=== PATIENT | female | born 1965 | race Two or more races ===

== ENCOUNTER → 2017-04-27 | Outpatient (REF) | payer BC ==
[2017-04-27 20:50] LABS: LUTEINIZING HORMONE 2.8 mIU/mL
[2017-04-27 20:51] LABS: FOLLICLE STIMULATING HORMONE 10.6 mIU/mL
== END ==
LOC: M LAB REF 17:02
PROVIDERS: ATTEND Nurse Practitioner Family
DX: N95.8 Other specified menopausal and perimenopausal disorders (principal)

== ENCOUNTER → 2018-12-03 | Outpatient (REF) | payer BC, MEDICAID ==
[2018-12-03 13:32] LABS: BASO # 0.1 10^3/uL (0.0-0.2); BASO % 0.8 % (0.0-1.0); EOS # 0.1 10^3/uL (0.0-0.50); EOS % 2.3 % (0.0-3.0); HEMATOCRIT 41.6 % (36.0-47.0); HEMOGLOBIN 13.9 g/dl (12.0-15.5); LYMPH # 1.9 10^3/uL (1.5-4.5); MEAN CORPUSCULAR HEMOGLOBIN 31.2 pg (27.0-33.0); MEAN CORPUSCULAR HGB CONC 33.4 g/dl (32.0-36.5); MEAN CORPUSCULAR VOLUME 93.5 fl (80.0-96.0); MONO # 0.4 10^3/uL (0.0-0.8); MONO % 6.7 % (0.0-5.0); NEUTROPHILS # 3.6 10^3/uL (1.8-7.7); NEUTROPHILS % 58.9 % (36.0-66.0); PLATELET COUNT, AUTOMATED 209 10^3/uL (150-450); RED BLOOD COUNT 4.45 10^6/uL (4.00-5.40); WHITE BLOOD COUNT 6.1 10^3/uL (4.0-10.0)
[2018-12-03 13:44] LABS: BLOOD UREA NITROGEN 15 MG/DL (7-18); CALCIUM LEVEL 9.3 MG/DL (8.5-10.1); CARBON DIOXIDE LEVEL 25 MEQ/L (21-32); CHLORIDE LEVEL 106 MEQ/L (98-107); CHOLESTEROL LEVEL 285 MG/DL (<200); CREATININE FOR GFR 0.77 MG/DL (0.55-1.30); GLOMERULAR FILTRATION RATE > 60.0 (>51); GLUCOSE, FASTING 107 MG/DL (70-100); HDL CHOLESTEROL 60 MG/DL (>40); LDL CHOLESTEROL 183 MG/DL (<100); NON-HDL-C 225 MG/DL; POTASSIUM SERUM 4.3 MEQ/L (3.5-5.1); SODIUM LEVEL 138 MEQ/L (136-145); TRIGLYCERIDES LEVEL 212 MG/DL (<150)
[2018-12-03 13:45] LABS: LUTEINIZING HORMONE 1.2 mIU/mL
[2018-12-03 13:46] LABS: FOLLICLE STIMULATING HORMONE 3.9 mIU/mL
[2018-12-03 14:11] LABS: HEMOGLOBIN A1c 6.2 %
== END ==
LOC: M LAB REF 13:06
PROVIDERS: ATTEND Internal Medicine
DX: F34.1 Dysthymic disorder (principal); E03.9 Hypothyroidism, unspecified; Z79.3 Long term (current) use of hormonal contraceptives; R73.09 Other abnormal glucose; E78.00 Pure hypercholesterolemia, unspecified; N95.8 Other specified menopausal and perimenopausal disorders

== ENCOUNTER → 2021-01-24 | Outpatient (CLI) | payer OTHER ==
--- NOTE | 2021-01-24 09:49 | REP ---
INDICATION: PAIN COMPARISON: None. TECHNIQUE: AP, lateral, bilateral oblique and sunrise views. FINDINGS: Very subtle early spurring along the medial and lateral tibiofemoral compartments noted with minimal medial joint space narrowing. Lateral and sunrise views demonstrate increased sclerosis along the posterior patellar margin with mild patellofemoral joint space narrowing and marginal patellar spurring. Small suprapatellar effusion cannot be excluded. No evidence for acute fracture or dislocation. IMPRESSION: Mild/early-moderate arthritic changes <Electronically signed by Oliverio Virk > 01/24/21 0926
== END ==
LOC: M WUC 09:31
PROVIDERS: ATTEND Physician Assistant
DX: M17.12 Unilateral primary osteoarthritis, left knee (principal)

== ENCOUNTER → 2021-01-30 | Outpatient (CLI) | payer OTHER ==
--- NOTE | 2021-01-30 15:19 | REP ---
INDICATION: PAIN IN LT KNEE. COMPARISON: Radiographs 01/24/2021. TECHNIQUE: Real-time sonographic evaluation of posterior left knee soft tissues performed. FINDINGS: Popliteal artery and vein are patent. There is no thrombus in the popliteal vein. No cystic or solid mass is seen. No fluid collection is seen. IMPRESSION: Negative ultrasound left popliteal fossa. <Electronically signed by Benjamin Garces > 01/30/21 0811
== END ==
LOC: M RAD 14:24
PROVIDERS: ATTEND Physician Assistant
DX: M25.562 Pain in left knee (principal)

== ENCOUNTER → 2025-01-24 | Outpatient (CLI) | payer OTHER | LOC: M WUC 13:58 | PROVIDERS: ATTEND Physician Assistant Medical | DX: M25.552 Pain in left hip (principal) ==

== ENCOUNTER → 2025-04-06 | Outpatient (REF) | payer OTHER | LOC: M LAB REF 13:33 | PROVIDERS: ATTEND Physician Assistant Medical | DX: R53.83 Other fatigue (principal); R20.2 Paresthesia of skin ==